=== PATIENT | female | born 1975 | race African-American/Black ===

== ENCOUNTER → 2020-10-26 | Outpatient (CLI) | payer BC ==
--- NOTE | 2020-10-26 14:35 | Diagnostic Imaging Report ---
INDICATION: Right shoulder pain. FINDINGS: Three views of the right shoulder show no fracture, dislocation, or other acute abnormalities. IMPRESSION: Negative right shoulder. Dictated by: Dictated on workstation # [id number]
== END ==
LOC: RAD FS 13:59
PROVIDERS: ATTEND Nurse Practitioner
DX: M25.511 Pain in right shoulder (principal)
CPT/HCPCS: 73030